=== PATIENT | female | born 1930 | race Caucasian/White ===

== ENCOUNTER → 2016-08-20 | Outpatient (CLI) | payer OTHER ==
[2016-06-14 11:00] VITALS: BP 134/68
[~2016-08-20] MED LIST: APIX5TAB PO; CHOL500051 PO; CITA10TA4 PO; DOXY100T PO; DULO30CA43 PO; FAMC500T PO; FLUT1DIS3 IH; FURO40TA4 PO; INSU100C4 SQ; IPRA4AER IH; LACT1CAP2 PO; LEVO125T5 PO; MAGN400C PO; MEMA10TA PO; METO50TA2 PO; OXYB5TAB7 PO; POLY255P PO; POTA10TA10 PO; PRED-220 PO; PREG75CA PO; TRAM50TA PO
--- NOTE | 2016-08-20 12:00 | RAD ---
Indication pulmonary nodule. Uterine cancer. PET/CT was performed from the skull through the proximal thigh. CT was performed primarily for localization and attenuation purposes as opposed to primary diagnostic purposes. 12.7 mCi of FDG was administered. The blood sugar during the examination was 139. No prior PET/CT imaging is available. On CT the visualized brain appears unremarkable. No significant finding is seen in the neck. Significant hilar or mediastinal adenopathy is not seen. There is a 1 cm pulmonary nodule in the left upper lobe. No significant finding is seen in the abdomen or pelvis. On PET the FDG is physiologically distributed in the visualized brain. No abnormal activity is seen in the neck. The 1 cm pulmonary nodule in the left upper lobe is not FDG avid. No abnormal FDG activity is seen in the chest. The FDG is physiologically distributed in the abdomen and pelvis. IMPRESSION: Unremarkable PET/CT imaging. 1 cm pulmonary nodule in the left upper lobe is not FDG avid. Continued CT surveillance advised
== END | disposition home or self-care (01) ==
LOC: PETSC 09:06
PROVIDERS: ATTEND Family Medicine
DX: C55 Malignant neoplasm of uterus, part unspecified (principal)
CPT/HCPCS: 78815; A9552